=== PATIENT | male | born 1970 | race Caucasian/White ===

== ENCOUNTER 2025-04-28 12:00 | Day surgery (SDC) | payer BC ==
[2025-04-25 10:41] LABS: Absolute Lymphocytes (CBC) 1.2 K/uL (0.7-4.9); Hematocrit 38.6 % (39.6-49.0); Hemoglobin 13.1 g/dL (13.6-17.9); MCH 32.4 pg (27.0-35.0); MCHC 33.8 g/dL (32.0-36.0); MCV 95.8 fL (80-100); MPV 6.9 fL (7.6-11.3); Nucleated RBC Absolute Count 0.0 (0-0); Nucleated Red Blood Cells % 0.1 % (0-0); RBC Red Blood Cell Count 4.03 M/uL (4.33-5.43); White Blood Count 4.20 thou/uL (4.3-10.9)
[2025-04-25 10:50] LABS: PT Prothrombin Time 11.4 SECONDS (10-13.0); PTT, Activated Partial Thromb 32.1 SECONDS (27.2-37.4); Protime INR 1.01
[2025-04-25 10:54] LABS: Anion Gap 7.6 mEq/L (5.0-15.0); BUN Blood Urea Nitrogen 28.0 mg/dL (7-18); Glucose Level 164.0 mg/dL (74-106); Potassium 4.6 mEq/L (3.5-5.1)
[2025-04-28] MEDS ORDERED: NA CHLORIDE 0.9% 500 ML ONE (12:14)
[2025-04-28] MEDS ORDERED: ASPIRIN 81 MG CHEWABLE TABLET ONE (12:30)
[2025-04-28 13:26] VITALS: TEMP 98.7
[2025-04-28] MEDS ORDERED: HEPARIN 10,000 UNIT/10 ML VIAL IV ONE (13:31)
[2025-04-28] MEDS ORDERED: LIDOCAINE 1% 20 ML MDV ONE (13:31)
[2025-04-28] MEDS ORDERED: HEPA 1000U/500MLS 2,000 UNIT/1,000 ML BAG IV ONE (13:31)
[2025-04-28] MEDS ORDERED: VERAPAMIL HCL 10 MG/4 ML VIAL IV ONE (13:32)
[2025-04-28] MEDS ORDERED: HEPARIN 5000 UNIT/ML 1 ML VIAL ONE (13:32)
[2025-04-28] MEDS ORDERED: FENTANYL CITR 100 MCG/2 ML ONE (13:37)
[2025-04-28] MEDS ORDERED: MIDAZOLAM HCL 2 MG/2 ML INJ ONE (13:37)
[2025-04-28 16:12] VITALS: O2SAT 97
[2025-04-28 16:39] VITALS: BP 125/75
--- NOTE | 2025-05-10 02:24 | OP ---
Date of Procedure: 04/28/2025 Surgeon: Raymon Silva Procedure Performed: Angiogram with runoff. Indication: Severe claudication, known peripheral vascular disease on ultrasound. Access: Right radial artery 6-Yakut closed with TR band. Complications: None. Bleeding: Less than 50 mL. Total Sedation Time: 1 hour, used fentanyl and Versed. Description Of Procedure: After risks, benefits, and alternatives were explained, the patient agreed to procedure and signed informed consent. The patient was [facility] into [facility], prepped and draped in the usual sterile fashion. Then, I accessed the right radial artery us ing pediatric micropuncture kit, ultrasound guidance, and placed a 6-Yakut slender sheath and took a long 4-Yakut Pigtail catheter, placed in distal aorta, performed distal aortogram runoff and then r emoved the catheter and the sheath, placed TR band with good hemostasis. Findings: 1. Distal aorta is widely patent. 2. Right lower extremity: The common iliac and external iliac has about 50% stenosis. Common femora l artery is normal. Profunda is widely patent. The SFA has mild 30-40% on multiple locations. Popl iteal artery is normal and the anterior tibial, tibial trunk, posterior tibial and peroneal arteries are all widely patent. 3. Left lower extremity: The common iliac and external iliac has severe 90% stenosis. Common femora l artery is widely patent. Profunda is normal and the SFA has a very slow flow and the mid 50% steno sis. Popliteal artery is normal and it could not see very well below the knee, but the 3 vessels are present. This is to be re-evaluated after the intervention of the iliac artery. 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 Plan: Staged intervention at [place] for further evaluation of the below the knee at that time. SR/MODL Voice ID: [id number] Report ID: [id number]
== END 2025-04-28 16:35 | disposition home or self-care (01) ==
LOC: CCL 12:00
PROVIDERS: ATTEND Internal Medicine
PROC: B41D1ZZ Fluoroscopy of Aorta and Bilateral Lower Extremity Arteries using Low Osmolar Contrast (ICD-10-PCS; principal; 2025-04-28)
DX: I70.223 Atherosclerosis of native arteries of extremities with rest pain, bilateral legs (principal); E11.9 Type 2 diabetes mellitus without complications; I34.0 Nonrheumatic mitral (valve) insufficiency; E78.2 Mixed hyperlipidemia; Z87.891 Personal history of nicotine dependence; Z79.84 Long term (current) use of oral hypoglycemic drugs; Z79.899 Other long term (current) drug therapy; Z88.0 Allergy status to penicillin; Z88.8 Allergy status to other drugs, medicaments and biological substances; Z82.49 Family history of ischemic heart disease and other diseases of the circulatory system
CPT/HCPCS: 36200; 93005; 85025; 80048; 36415; 85610; 82947; 85730; 75630; 76937; C1893; J1644 ×2; J2003; J2250; J3010; J7040; 99152; 99153